=== PATIENT | male | born 1955 | race Caucasian/White ===

== ENCOUNTER 2024-12-31 11:53 | Emergency (ER) | payer OTHER, SELFPAY ==
[2024-12-31 11:57] VITALS: BP 136/65
[2024-12-31 12:11] LABS: Hematocrit 38.0 % (39.0-52.0); Hemoglobin 12.5 g/dL (13.0-18.0); Mean Corp Hgb Conc. 32.9 g/dL (33.0-37.0); Mean Corpuscular Volume 88.4 fL (80.0-94.0); Nucleated Red Blood Cells % 0 % (-); Platelet Count 187 10^3/uL (130-400); Red Cell Dist. Width 13.9 % (11.5-14.5)
[2024-12-31 12:28] LABS: ALT (SGPT) 28 U/L (0-50); AST (SGOT) 27 U/L (17-59); Albumin 4.2 g/dl (3.5-5.0); Alkaline Phosphatase 77 U/L (38-126); Blood Urea Nitrogen 22 mg/dl (9-20); Calcium 8.8 mg/dl (8.4-10.2); Carbon Dioxide 28 mmol/L (22-30); Chloride 103 mmol/L (98-107); Glucose 226 mg/dl (70-99); Lipase 573 U/L (23-300); Potassium 4.7 mmol/L (3.5-5.1); Sodium 138 mmol/L (135-145); Total Protein 7.4 g/dl (6.3-8.2); eGFR > 60.00
[2024-12-31 14:10] VITALS: BP 132/58
--- NOTE | 2024-12-31 14:35 | ED.GENMED ---
History of Present Illness
General
Chief Complaint: Abdominal Symptoms
Source: patient and spouse
Exam Limitations: none
Time Seen by Provider: 12/31/24 14:15
Nursing documentation reviewed up to this point in time: agreed with
History of Present Illness
History of Present Illness:
69 yo male w h/o neuropathy feet, NIDDM, HTN, cholecystectomy, anal fissure repair presents for one month of blood mixed in his stools, and noting blood on toilet paper up until one week ago when the bleeding stopped but he has been having very
frequent small stools all day and nights since. Sometimes, incontinent. Also has mild left side and lower abdominal pains past week. Denies fever, felt chilled last night. Denies n/v. Denies CP, SOB.
Past History
Past History
ED Past Medical History: HTN, NIDDM and Other (Neuropathy both lower extremities since having covid)
ED Past Surgical History: Cholecystectomy and Other (anal fissure repair)
Social History
Tobacco: Non-smoker
Alcohol: None
Personal:
Living: with family
Employment: Disabled (since having Covid)
Review of Systems
Review of Systems
Allergies reviewed?: Yes
All Other Systems: ROS reviewed and negative except as documented in HPI and ROS
Phy Exam
Physical Exam
Physical Exam:
GENERAL: No acute distress. A&Ox3.
CONSTITUTIONAL: Afebrile.
EYES: clear, conjunctivae normal
ENMT: moist mucus membranes, Pharynx nl
RESPIRATORY: Regular respirations, nonlabored, lungs clear.
CARDIOVASCULAR: Regular rate and rhythm, no murmurs, no rubs.
GI: Soft, nontender, normal BS
Rectal: No stool in rectal vault, mucus on gloved finger hematest positive
MUSCULOSKELETAL: Moves with ease. Well perfused.
SKIN: Warm, dry, pink
PSYCH: Normal mood and affect. Well kept, interactive and appropriate
NEUROLOGIC: Awake, alert and oriented. No focal neurological deficits
Course
Orders/Labs/Results
Orders:
Orders
12/31/24 12:04
Type+Screen Urgent
Complete Blood Count/With Diff Urgent
Comprehensive Metabolic Panel Urgent
Lipase Urgent
12/31/24 14:34
CT Abd/Pel (IV only)-DH only Urgent
Comment:
Reason For Exam: left and lower abdominal pain, blood in stools
12/31/24 15:30
STOOL [C difficile Antigen & Toxins] Urgent
KATELYNN Source: Feces/Stool
Specimen Description:
Date Specimen was Collected: 12/31/24
Time Specimen was Collected: 15:27
Stool Culture Urgent
KATELYNN Source: Feces/Stool
Specimen Description:
Date Specimen was Collected: 12/31/24
Time Specimen was Collected: 15:27
12/31/24 17:02
Amoxicillin 875 mg/Clav 125 mg [Augmentin 875 mg/125 mg] 1 tablet PO NOW STA
Abnormal Lab Results
12/31/24
12:04
RBC 4.30 L 10^6/uL
(4.70-6.10)
Hgb 12.5 L g/dL
(13.0-18.0)
Hct 38.0 L %
(39.0-52.0)
MCHC 32.9 L g/dL
(33.0-37.0)
MPV 11.4 H fL
(7.4-10.4)
Absolute Monos (auto) 1.1 H 10^3/uL
(0.1-0.6)
Lymphocytes % 20.2 L %
(20.5-51.1)
Monocytes % 12.3 H %
(1.7-9.3)
BUN 22 H mg/dl
(9-20)
Glucose 226 H mg/dl
(70-99)
Lipase 573 H U/L
(23-300)
12/31/24 12:04
12/31/24 12:04
Vital Signs
Initial and Last Documented VS:
Initial Vital Signs
Temp Pulse Resp BP Pulse Ox
97.8 F 73 18 136/65 95
12/31/24 11:57 12/31/24 11:57 12/31/24 11:57 12/31/24 11:57 12/31/24 11:57
Last Documented Vital Signs
Temp Pulse Resp BP Pulse Ox
97.8 F 76 17 152/52 94
12/31/24 11:57 12/31/24 16:30 12/31/24 16:30 12/31/24 16:17 12/31/24 16:30
MDM/Problems Addressed
Differential Diagnosis Includes:
diverticulitis, colitis, anal fissure, pancreatitis
MDM/Problems Addressed:
69 yo male w h/o neuropathy feet, NIDDM, HTN, cholecystectomy, anal fissure repair presents for one month of blood mixed in his stools, and noting blood on toilet paper up until one week ago when the bleeding stopped but he has been having very
frequent small stools all day and nights since. Sometimes, incontinent. Also has mild left side and lower abdominal pains past week. Denies fever, felt chilled last night. Denies n/v. Denies CP, SOB.
Afebrile, NAD
CBC normal
CMP with no clinically significant abnormality
Lipase mild elevation at 573
12:00 PM:
CAT scan abdomen pelvis with IV only contrast: Radiology report read: IMPRESSION:
Thickening of the wall of an overlapping segment of distal sigmoid colon with some surrounding stranding which may be on the basis of diverticulitis or colitis of other etiology. No intestinal obstruction or free air.
Prior cholecystectomy
Hepatosplenomegaly.
Copy of report reviewed with and given to patient
Pt has appointment with his own GI doctor in 4 days he will keep.
*Pulse Oximetry
SaO2: 95
Oxygen Mode of Delivery: Room air
Patient hypoxic: not evaluated
*Critical Care Note
Total Time (30-74mins, 75-104mins- exclusive of procedures): Not Applicable
ED Attending Note
-
Portions of this chart may have been created with voice recognition software.� Occasional wrong word or��sound alike� substitutions may have occurred due to the inherent limitations of voice recognition software.
Discharge Plan
Departure
Patient Disposition: Home (Routine Discharge)
Date of Disposition: 12/31/24
Time of Disposition: 17:04
Patient with high blood pressure during this ER visit?: No
Condition: Fair
Discharge Problem:
Acute diverticulitis
Instructions: Clear Liquid Diet, Diverticulitis (DC)
Prescriptions:
New
amoxicillin-pot clavulanate 875-125 mg tablet
1 tab PO BID Qty: 20 0RF
Referrals:
Rod Bedolla MD [Active, Gastroenterology] - Call in 1-3 days for appt
UNKNOWN - PT DOES,NOT KNOW [Family Provider]
Activity Restrictions/Additional Instructions:
As we discussed, you have diverticulitis, I sent a prescription to your pharmacy for Augmentin to take 875 mg twice a day for the next 10 days
You should also eat yogurt daily or take a probiotic while you are on the antibiotic
Return here immediately for worsening abdominal pain, fever, vomiting, increasing bloody stools or feeling sicker in any way.
Call the GI doctors office Wednesday to make a follow-up appointment and also make an appointment for colonoscopy.
Interventions
Interventions:
*Risk Screen - Suicide Last Done: 12/31/24 12:00
*General Assessment Last Done: 12/31/24 12:00
*Neglect/Abuse Screening Last Done: 12/31/24 12:00
*ED COVID-19 Vaccine History Last Done: 12/31/24 12:00
*ED Influenza Vaccine History Last Done: 12/31/24 12:00
*Nursing Disposition Last Done: 12/31/24 17:36
QS-Vmixom-Vttgnlvxgz Assessment Last Done: 12/31/24 14:52
Discharge Date and Time
Discharge Date/Time: 12/31/24 17:36
Print Language: ROMANIAN
[2024-12-31 16:17] VITALS: BP 152/52
[2024-12-31] MEDS: AUGMENTIN 875 MG/125 MG 1 TABLET PO (17:12)
== END 2024-12-31 17:36 | disposition home or self-care (01) ==
LOC: EMR 11:53
PROVIDERS: Emergency Medicine; EMERGENCY PHYSICIAN Student in an Organized Health Care Education/Training Program
DX: K57.32 Diverticulitis of large intestine without perforation or abscess without bleeding (principal); E11.42 Type 2 diabetes mellitus with diabetic polyneuropathy; I10 Essential (primary) hypertension; Z86.16 Personal history of COVID-19
CPT/HCPCS: 99284; 74177; 80053; 83690; 85025; 86850; 86900; 86901; 87045; 87046; 87324; 87427; 87449; Q9967